=== PATIENT | male | born 1940 | race Caucasian/White ===

== ENCOUNTER 2019-12-07 14:13 | Inpatient (IN) | payer MEDICARE, OTHER ==
[2019-12-07 14:54] LABS: #Basophils 0.1 thou/uL (0.0-0.2); #Lymphocytes 0.6 thou/uL (1.20-3.40); #Monocytes 0.4 thou/uL (0.11-0.59); #Neutrophils 6.1 thou/uL (1.40-6.50); %Basophils 0.9 % (0.0-1.0); %Eosinophils 0.2 % (0.0-10.0); %Lymphocytes 8.5 % (21.0-51.0); %Monocytes 5.8 % (0.0-10.0); %Neutrophils 84.6 % (42.0-75.0); Mean Corpuscular HGB CONC 34.6 g/dL (32.0-36.0); Mean Corpuscular Hemoglobin 32.4 pg (27.0-31.0); Mean Corpuscular Volume 93.7 fL (78.0-98.0); Mean Platelet Volume 8.9 fL (7.4-10.4); Platelet Count 138 thou/uL (130-400); RBC Distribution Width 12.8 % (11.5-14.5); Red Blood Cell (RBC) Count 4.33 mill/uL (4.70-6.10); White Blood Cell (WBC) Count 7.3 thou/uL (4.8-10.8)
[2019-12-07] MEDS ORDERED: levETIRAcetam 1000 MG/100 ML PREMIX BAG ONE (15:04)
[2019-12-07 15:17] LABS: ALT (SGPT) 19 U/L (8-55); AST (SGOT) 17 U/L (5-34); Alkaline Phosphatase 102 U/L (40-110); Anion Gap 18 mmol/L (10-20); BUN (Urea Nitrogen) 20 mg/dL (8.4-25.7); Bilirubin, Total 0.5 mg/dL (0.2-1.2); Calc. Creatinine Clearance 0 mL/min (70-130); Calcium 10.1 mg/dL (7.8-10.44); Carbon Dioxide 18 mmol/L (23-31); Chloride 105 mmol/L (98-107); Estimated GFR-MDRD 58; Globulin 3.1 g/dL (2.4-3.5); Glucose 188 mg/dL (83-110); Potassium 4.7 mmol/L (3.5-5.1); Protein, Total 7.1 g/dL (5.8-8.1); Sodium 136 mmol/L (136-145)
--- NOTE | 2019-12-07 15:41 | RAD ---
FRONTAL RADIOGRAPH CHEST: Date: 12/07/2019 HISTORY: Seizure. FINDINGS: Mild increased linear interstitial density noted. Dense opacity in the medial left base noted, which may represent volume loss or infiltrate. No large volume pleural effusion. No pneumothorax. Shallow i nspiration and portable technique limits assessment of the lung bases. IMPRESSION: Nonspecific focal opacity in the left cardiophrenic angle. POS: [facility]
--- NOTE | 2019-12-07 15:47 | CT ---
HEAD CT WITHOUT CONTRAST: Date: 12/07/2019 COMPARISON: 08/05/2019. HISTORY: Seizure. TECHNIQUE: Axial CT imaging at 5 mm intervals from vertex through skull base without contrast. FINDINGS: The visualized paranasal sinuses and mastoid air cells are well aerated. No displaced calvarial fract ure is evident. There is atherosclerotic calcification of the cavernous carotid arteries and the basi lar artery. There is evidence of a bur hole in the right frontal region. As seen on the prior examination, there is extensive periventricular, deep, and subcortical white mat ter hypodensity, evidence of small vessel disease. Stable prominence of the lateral ventricles. No intracranial hemorrhage, midline shift, or mass effect. IMPRESSION: Stable head CT as detailed above. No intracranial hemorrhage, midline shift, or mass effect. POS: [facility]
[2019-12-07 16:27] LABS: Bacteria/HPF 4+ HPF (None Seen); Bilirubin Negative (Negative); Blood, Urine Negative (Negative); Clarity Turbid (Clear); Glucose, Urine (Dipstick) Normal (Negative); Leukocyte 500 Leu/uL (Negative); Nitrite Negative (Negative); Protein, Urine (Dipstick) 30 mg/dL (Neg-Trace); Squamous Epithelial None Seen HPF (0-3); Urobilinogen Normal mg/dL (Less than 2); WBC/HPF Greater than 50 HPF (0-3)
[2019-12-07] MEDS ORDERED: cefTRIAXone\\ROCEPHIN 2 GM VIAL ONE (16:49)
--- NOTE | 2019-12-07 18:07 | PDOC.FPRHP ---
- History of Present Illness Chief Complaint: Seizure History of Present Illness: 79 yo M with history of seizures 2/2 hydrocephalus, DMII, HTN, and HLD who presents after tonic clonic seizure. He was sitting in his wheelchair watching tv and his stomach was hurting so his took him to the bathroom. She made him eggs after. She went to go fold clothes and heard a noise and went to the living room. She said he was in his wheelchair shaking all over and blue in the face. May x1- He was "not awake for 5 weeks. He was diagnosed with Hydrocephalus and had a drain, but took it out. [facility] and rehab, then he broke his leg and had to come back to the hospital and back to rehab. During this episode: He was awake, no biting of his tongue or bowel or bladder incontinence. His primary at the [place]- Dr. Patricia was supposed to set up a neurology referral, but it has never been set up. ED Course: EMS gave him 2 mg of Ativan. In the ED, he was given azithro, rocephin, Keppra, and 1 L NS. - Allergies/Adverse Reactions Allergies Allergy/AdvReac Type Severity Reaction Status Date / Time tramadol Allergy Verified 12/08/19 02:36 - Home Medications Medication Instructions Recorded Confirmed Type Atorvastatin Calcium 20 mg PO DAILY 12/07/19 12/07/19 History Docusate Calcium 240 mg PO DAILY PRN 12/07/19 12/07/19 History Gabapentin 300 mg PO BID 12/07/19 12/07/19 History Gabapentin 600 mg PO QPM 12/07/19 12/07/19 History Lisinopril 20 mg PO DAILY 12/07/19 12/07/19 History Metoprolol Tartrate 37.5 mg PO BID 12/07/19 12/07/19 History Omeprazole 20 mg PO TID 12/07/19 12/07/19 History Potassium Chloride [K-Dur] 20 meq PO BID 12/07/19 12/07/19 History Rivaroxaban [Xarelto] 20 mg PO DAILY 12/07/19 12/07/19 History Tamsulosin HCl 0.4 mg PO DAILY 12/07/19 12/07/19 History Terbinafine HCl 250 mg PO DAILY 12/07/19 12/07/19 History diphenhydrAMINE [Benadryl] 25 mg PO DAILY PRN 12/07/19 12/07/19 History glipiZIDE [Glipizide] 5 mg PO TID 12/07/19 12/07/19 History - History PMHx: Seizure 2/2 Hydrocephalus, DMII, DVT in [place]- 07/14, HTN, HLD PSHx: SB resection (2002), IVC Filter (2002), left hip surgery (2002 & 07/15) FHx: Non-contributory Social: Tobacco- quit 1981, since teenager, 1PPD. Alcohol- 1 beer occasional. No recreational drugs. Baseline- A&Ox3, hard of hearing, needs hearing aids Code Status: Chemical & intubate - Review of Systems ROS unobtainable: due to mental status - Vital signs BP: 120/78 HR: 105 RR: 12 Tmax: 97.7 Pox: 98% on RA Wt: 77.11 kg - Physical Exam Constitutional: NAD HEENT: normocephalic and atraumatic, PERRLA, conjunctiva clear, normal nasal mucosa, oropharynx clear -HEENT: Dry mucous membranes Neck: supple, no LAD Chest: no-tender to palpation Heart: normal S1/S2 -Heart: Tachycardiac Lungs: CTAB, no respiratory distress Abdomen: soft, non-tender, bowel sounds present Musculoskeletal: normal structure, normal tone Neurological: no focal deficit Skin: no rash/lesions, good turgor Heme/Lymphatic: no unusual bruising or bleeding, no purpura, no petechia -Psychiatric: A&O: 0/4 FMR H&P: Results - Labs Result Diagrams: 12/08/19 04:30 12/07/19 14:46 Lab results: WBC 7.3 thou/uL (4.8-10.8) 12/07/19 14:47 Hgb 14.0 g/dL (14.0-18.0) 12/07/19 14:47 Hct 40.5 % (42.0-52.0) L 12/07/19 14:47 MCV 93.7 fL (78.0-98.0) 12/07/19 14:47 Plt Count 138 thou/uL (130-400) 12/07/19 14:47 Neutrophils % 84.6 % (42.0-75.0) H 12/07/19 14:47 Sodium 136 mmol/L (136-145) 12/07/19 14:46 Potassium 4.7 mmol/L (3.5-5.1) 12/07/19 14:46 Chloride 105 mmol/L (98-107) 12/07/19 14:46 Carbon Dioxide 18 mmol/L (23-31) L 12/07/19 14:46 BUN 20 mg/dL (8.4-25.7) 12/07/19 14:46 Creatinine 1.20 mg/dL (0.7-1.3) 12/07/19 14:46 Glucose 188 mg/dL (83-110) H 12/07/19 14:46 Calcium 10.1 mg/dL (7.8-10.44) 12/07/19 14:46 Total Bilirubin 0.5 mg/dL (0.2-1.2) 12/07/19 14:46 AST 17 U/L (5-34) 12/07/19 14:46 ALT 19 U/L (8-55) 12/07/19 14:46 Alkaline Phosphatase 102 U/L (40-110) 12/07/19 14:46 Serum Total Protein 7.1 g/dL (5.8-8.1) 12/07/19 14:46 Albumin 4.0 g/dL (3.4-4.8) 12/07/19 14:46 Urine Ketones 10 mg/dL (Negative) A 12/07/19 16:00 Urine Blood Negative (Negative) 12/07/19 16:00 Urine Nitrite Negative (Negative) 12/07/19 16:00 Ur Leukocyte Esterase 500 Per/uL (Negative) A 12/07/19 16:00 Urine RBC 4-6 HPF (0-3) A 12/07/19 16:00 Urine WBC Greater than 50 HPF (0-3) A 12/07/19 16:00 Ur Squamous Epith Cells None Seen HPF (0-3) 12/07/19 16:00 Urine Bacteria 4+ HPF (None Seen) A 12/07/19 16:00 FMR H&P: A/P - Problem List (1) Seizure Current Visit: Yes Status: Acute Code(s): R56.9 - UNSPECIFIED CONVULSIONS (2) Normal pressure hydrocephalus Current Visit: Yes Status: Acute Code(s): G91.2 - (IDIOPATHIC) NORMAL PRESSURE HYDROCEPHALUS (3) DMII (diabetes mellitus, type 2) Current Visit: Yes Status: Chronic (4) HTN (hypertension) Current Visit: Yes Status: Chronic Code(s): I10 - ESSENTIAL (PRIMARY) HYPERTENSION (5) HLD (hyperlipidemia) Current Visit: Yes Status: Chronic Code(s): E78.5 - HYPERLIPIDEMIA, UNSPECIFIED - Plan 79 yo M with history of seizures 2/2 hydrocephalus, DMII, HTN, and HLD who presents after tonic clonic seizure. 1. Seizure, likely 2/2 Normal Pressure Hydrocephalus Hx of Normal Pressure Hydrocephalus 06/14 with luna hole and shunt placement that was later removed * CT Brain: Negative * EMS: 2mg Ativan * ED: Keppra loading dose * Will continue Keppra and Ativan on prn * Consider neurosurgery consult in the am * Q4H Neurochecks * No neurologist outpt, saw Dr. Esqueda last visit 2. Acute Encephalopathy Likely 2/2 to Seizure * A&O x0 * Baseline: A&O x3, per * Will continue to monitor 3. UTI UA: Melida 4+, WBC 500, Nit neg, urine turbid * ED: Rocephin * Will continue Rocephin * Await culture and sensitivities 3. Left Lower Lobe Opacity per Cxray * ED: azithro * Will hold antibiotics for now and check procal 4. Tachycardia Likely 2/2 infection vs dehydration * ED: 1L NS * Ordered 1L LR * Continue IVF 100 cc/h * Placed on telemetry * Will continue to monitor 5. DMII Will hold glipizide * QACHS checks * Hypoglycemia protocol * Mild SSI 6. HTN Continue home medication regimen * Will continue to monitor and adjust ast needed 7. HLD Continue home medication Code Status: Chemical & Intubation Diet: NPO, pending speech eval Activity: strict bedrest, fall precautions Fluids: LR @ 100 GI PPx: Omeprazole DVT PPx: Xarelto Dispo: Stroke inpt for seizure, LOS > 48H. Will admit to stroke and treat for UTI. FMR H&P: Upper Level - Plan Date/Time: 12/07/191806 Karlos Morley MD, have evaluated this patient and agree with findings/plan as outlined by media intern resident. Pertinent changes/additions are listed here. Rhea Cox is a 79 year old M with a PMH of DM2, HTN, HLD, NPH, Epilepsy, Hx of DVT on anticoagulation who was brought to the ED for seizure. Patient unable to provide any history in ED due to post-ictal state and A&OX0. Hx gathered from ER nurse and patient's . states that he had tonic clonic seizure today while sitting in wheelchair watching tv. Episode witness and he had generalized shaking and was blue in the face. In may 2019, he had a seizure episode and was diagnosed with NPH and had drain in for a few months but it was removed. He has not had an seizure like activity since that time until now. He had not been complaining of anything to his recently. denies any bowel or bladder incontinence or tongue biting. In the ED, CT brain was negative and CXR showed left lower lobe opacity. He was given azithro and rocephin for possible UTI as well as 1 L NS and loaded with levitiracetam. EKG showed sinus tachycardia with bifasicular block. Labs showed UDS pos for benzos , trop 0.01, UA showed 4+ bact, 0-3 squa, leuks. WBC 7.3, Hg 14.0, Cr 1.2, Na 136, K 4.7. On exam, pt A&OX0, minimally responsive to commands, GCS 10. Neuro nonfocal, movement bilaterally but not cooperative. Heart tachycardic, no murmur. Lungs CTAB. ABd soft nt/nd. Ext no cyanosis or edema. Admitting to inpatient stroke for encephalopathy likely 2/2 seizure/postictal and uti. Trend cardiac enzymes, continue empiric antibiotics and monitor urine cx. Continue keppra. Neuro checks q4h. Consider neuro consult in am. Please see media intern note above for full H&P, which I have reviewed and agree with. Addendum - Attending - Attending Attestation Date/Time: 12/08/19 4609 I personally evaluated the patient and discussed the management with the team. I agree with the History, Examination, Assessment and Plan documented above with any addition or exceptions noted below. Pt with a PMH of seizures and had a trial of shunt for NPH which was removed after a lack of improvement. Low suspicion for sepsis/meningitis and per had not had significant mental status changes. On exam he arouses to voice but does not follow commands. His heart has occasional dropped beats, no murmur. Lungs clear. No evidence of soft tissue infection. Continue supportive care and empiric antibiotics. DC in 1-2 days.
[2019-12-07 18:14] LABS: Acetaminophen Less than 6.0 mcg/mL (10.0-30.0); Alcohol Less than 10 mg/dL (Less than 10); Salicylate Less than 8.0 mg/dL (15.0-30.0)
[2019-12-07 18:27] LABS: Amphetamine Not Detected (NotDetected); Barbiturates Screen Not Detected (NotDetected); Benzodiazepine Screen Detected (NotDetected); Cocaine Metabolite Screen Not Detected (NotDetected); Medtox Control Line Valid? VALID (VALID); Medtox Reader # READER 4; Methadone Not Detected (NotDetected); Methamphetamine Not Detected (NotDetected); Opiate Screen Not Detected (NotDetected); Oxycodone Screen Not Detected (NotDetected); Phencyclidine (PCP) Not Detected (NotDetected); THC/Cannabinoid Screen Not Detected (NotDetected); Tricyclic Screen Not Detected (NotDetected)
[2019-12-07] MEDS ORDERED: Azithromycin 500 MG VIAL ONE (19:00)
[2019-12-07] MEDS ORDERED: Acetaminophen 650 MG Suppository PR PRN (20:14)
[2019-12-07] MEDS ORDERED: Senokot S 8.6-50 MG TAB PO PRN (20:14)
[2019-12-07] MEDS ORDERED: Lorazepam 2 MG/ML VIAL SLOW IVP PRN (20:14)
[2019-12-07] MEDS ORDERED: Ondansetron ODT 4 MG TAB PO PRN (20:14)
[2019-12-07] MEDS ORDERED: Ondansetron PF 4 MG/2 ML Vial IVP PRN (20:20)
[2019-12-07] MEDS ORDERED: Ondansetron ODT 4 MG TAB SL PRN (20:20)
[2019-12-07] MEDS ORDERED: Acetaminophen 325 MG TAB PO PRN (20:20)
[2019-12-07 20:53] LABS: Phosphorus 2.8 mg/dL (2.3-4.7)
[2019-12-07] MEDS ORDERED: Lactated Ringer's 1,000 ML IV SCH (21:30)
[2019-12-07 21:56] LABS: Troponin I Less than 0.010 ng/mL (< 0.028)
[2019-12-07] MEDS ORDERED: Docusate Calcium (SURFAK) 240 MG CAP PO PRN (22:01)
[2019-12-07] MEDS ORDERED: Dextrose 5% in Water 1,000 ML IV PRN (22:05)
[2019-12-07] MEDS ORDERED: Dextrose 50% Abboject 50 ML SYRINGE SLOW IVP PRN (22:05)
[2019-12-07] MEDS ORDERED: HumaLOG 300 UNITS/3 ML VIAL SC PRN (22:05)
[2019-12-08] MEDS: Lactated Ringer's 1,000 ML IV SCH ×2 (00:24→14:09)
[2019-12-08 02:39] VITALS: BMI 23.2
[2019-12-08 05:00] LABS: #Eosinphils 0.1 thou/uL (0.0-0.7); #Lymphocytes 0.8 thou/uL (1.20-3.40); #Monocytes 1.1 thou/uL (0.11-0.59); #Neutrophils 8.3 thou/uL (1.40-6.50); %Basophils 0.4 % (0.0-1.0); %Eosinophils 0.6 % (0.0-10.0); %Lymphocytes 7.8 % (21.0-51.0); %Monocytes 10.4 % (0.0-10.0); %Neutrophils 80.8 % (42.0-75.0); Hemoglobin 13.9 g/dL (14.0-18.0); Mean Corpuscular HGB CONC 35.2 g/dL (32.0-36.0); Mean Corpuscular Hemoglobin 32.8 pg (27.0-31.0); Mean Corpuscular Volume 93.2 fL (78.0-98.0); Mean Platelet Volume 9.3 fL (7.4-10.4); Platelet Count 152 thou/uL (130-400); RBC Distribution Width 12.7 % (11.5-14.5); Red Blood Cell (RBC) Count 4.24 mill/uL (4.70-6.10); White Blood Cell (WBC) Count 10.2 thou/uL (4.8-10.8)
--- NOTE | 2019-12-08 07:36 | PDOC.FM ---
- Subjective Subjective: No acute events overnight. Per nursing staff mentation has waxed and waned, A/ Ox2 at best, he is A/O x0 at my assessment this morning. He is also very hard of hearing. Currently states he is in no pain, no fever/chills. No family at bedside or able to be reached by phone. No further seizure-like activity. - Objective MAR Reviewed: Yes Vital Signs & Weight: Vital Signs (12 hours) Temp Pulse Resp BP BP Pulse Ox 12/08/19 04:00 98.7 F 95 16 154/73 H 92 L 12/08/19 00:00 97.7 F 104 H 18 138/91 H 92 L 12/07/19 21:56 108 H 141/93 H 12/07/19 20:15 97.8 F 110 H 16 172/103 H 96 Weight Weight 71.395 kg I&O: 12/07/19 12/08/19 12/09/19 06:59 06:59 06:59 Intake Total 1700 Output Total 800 Balance 900 Result Diagrams: 12/08/19 04:30 12/07/19 14:46 Phys Exam - Physical Examination Constitutional: NAD (resting comfortably, A/O x0 this AM) HEENT: PERRLA dry MM Neck: supple Respiratory: no wheezing, no rales, no rhonchi, clear to auscultation bilateral Cardiovascular: RRR Gastrointestinal: soft, non-tender, no distention, positive bowel sounds Musculoskeletal: no edema 4+/5 BL UE, 4+/5 LLE, 4/5 RLE. Right facial droop and eyelid droop EOMI, normal sensation, unable to follow cerebellar tests Skin: no rash Dx/Plan (1) Seizure Code(s): R56.9 - UNSPECIFIED CONVULSIONS Status: Acute (2) DMII (diabetes mellitus, type 2) Status: Chronic (3) HLD (hyperlipidemia) Code(s): E78.5 - HYPERLIPIDEMIA, UNSPECIFIED Status: Chronic (4) HTN (hypertension) Code(s): I10 - ESSENTIAL (PRIMARY) HYPERTENSION Status: Chronic - Plan Plan: 79 yo M with history of seizures 2/2 hydrocephalus, DMII, HTN, and HLD who presented after tonic clonic seizure. #Seizure, suspected 2/2 Normal Pressure Hydrocephalus vs CVA - Hx of Normal Pressure Hydrocephalus 06/14 with luna hole and drain placement that was later removed - Known to Dr. Acevedo - CT Brain: no acute changes - Given 2mg Ativan by EMS and Keppra loading dose by ED - Cont keppra with Ativan prn - R facial droop this AM, with slightly more weak on R as compared to L. 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 Unable to contact to verify timeline of sxs or if these findings are chronic. MRI this morning to further evaluate. - will need outpatient neurology f/u - Will consult neurosurgery for eval and recs - Q4H Neurochecks #Acute Metabolic Encephalopathy - Seizure vs UTI vs NPH vs possible new CVA - Baseline A/O x3 per , A/O x0 this AM cont to monitor #UTI - UA: Melida 4+, WBC 500, Nit neg, urine turbid - Started on Rocephin 12/07, will cont and await UCx #Left Lower Lobe Opacity on CXR - given azithro in ED, VSS, procal negative. Holding azithro for now, monitor and consider restarting as necessary #Tachycardia - Likely 2/2 infection vs dehydration - s/p fluid resusitation in ED, cont IVF @ 100cc/hr - no acute events on tele, cont to monitor #DMII - Will hold glipizide as can contribute to hypoglycemia and AMS - ACHS accuchecks, hypoglycemic protocol, Mild SSI #HTN - Continue home medication regimen and adjust as needed #HLD - Continue home medication #H/o DVT - on Xarelto, will cont Code Status: Chemical & Intubation Diet: NPO, pending speech eval and mentation Activity: strict bedrest, fall/seizure precautions Fluids: LR @ 100 GI PPx: Omeprazole DVT PPx: Xarelto Dispo: Stroke inpt for seizure, LOS > 48H. Treating UTI. MRI pending. Neurosurgery recs. Cont Keppra. Addendum - Attending - Attending Attestation Date/Time: 12/08/19 3848 I personally evaluated the patient and discussed the management with Dr. Rivas. I agree with the History, Examination, Assessment and Plan documented above with any addition or exceptions noted below. Patient with no further seizure activity. Will consult NSGY regarding possible need for [employer] shunt 2/2 chronic NPH. MRI today.
[2019-12-08] MEDS ORDERED: levETIRAcetam 500 MG TAB PO SCH (09:00)
[2019-12-08] MEDS ORDERED: Prevnar 13-Val Conj/PF 0.5 ML SYRINGE IM ONE (09:00)
[2019-12-08] MEDS ORDERED: Lorazepam 2 MG/ML VIAL SLOW IVP PRN (10:57)
--- NOTE | 2019-12-08 13:17 | MRI ---
Exam: Brain MRI without contrast HISTORY: Altered mental status COMPARISON: None FINDINGS: Calvarial marrow signal intensity: Appropriate T1 signal Gradient echo sequence: No hemorrhage Brain parenchyma: No mass, mass effect or midline shift. Brain volume, age-appropriate. Cortical diaz-white matter differentiation: Preserved Restricted diffusion: Central arterial flow voids are maintained. Absent restricted diffusion White matter signal intensities: T2, FLAIR white matter hyperintensities due to chronic small vessel ischemic changes Sinuses: Adequate aeration of the paranasal sinuses and mastoid air cells. IMPRESSION: 1. Limited evaluation due to motion degradation. 2. No acute abnormality. 3. Stable chronic small vessel ischemic changes of the white matter. 4. Absent restricted diffusion. No acute infarct.
[2019-12-08] MEDS ORDERED: levETIRAcetam 500 mg/5 ml Oral Solution PO SCH (13:45)
[2019-12-08] MEDS ORDERED: Pantoprazole 40 MG GRANULES PACKET PO SCH (13:45)
[2019-12-08] MEDS: Potassium Chloride 20 MEQ TAB PO SCH ×2 (14:06→18:29)
[2019-12-08] MEDS: Tamsulosin HCl 0.4 MG CAP PO SCH (14:06)
[2019-12-08] MEDS: Metoprolol Tartrate 25 MG TAB PO SCH ×2 (14:06→20:38)
[2019-12-08] MEDS: Gabapentin 300 MG CAP PO SCH ×3 (14:06→20:40)
[2019-12-08] MEDS: Atorvastatin Calcium 20 MG TAB PO SCH (14:06)
[2019-12-08] MEDS: Lisinopril 20 MG TAB PO SCH (14:08)
[2019-12-08] MEDS: cefTRIAXone\\ROCEPHIN 1 GM in Sodium Chloride 0.9% 100 ML IVPB SCH (16:10)
[2019-12-08] MEDS: Pantoprazole 40 MG GRANULES PACKET PO SCH (18:29)
[2019-12-08] MEDS: Rivaroxaban 10 MG TAB PO SCH (18:29)
[2019-12-08] MEDS: Acetaminophen 325 MG TAB PO PRN (20:38)
[2019-12-08] MEDS: levETIRAcetam 500 mg/5 ml Oral Solution PO SCH (20:40)
[2019-12-09] MEDS: Lactated Ringer's 1,000 ML IV SCH ×3 (03:36→21:00)
--- NOTE | 2019-12-09 08:15 | PDOC.FM ---
- Subjective Subjective: Stable this morning. Mentation mildly improved. A/O x1 and slightly more talkative. Denies any pain, n/v, fever/chills. Quiet but will answer questions. Hard of hearing. Spoke with yesterday, states was at baseline a few days ago, A/O x3, but was complaining of urinary sxs and foul-smelling urine. He is usually wheel-chair bound but does walk some with walker at home. She witness seizure, gaze fixed and full body shaking. - Objective MAR Reviewed: Yes Vital Signs & Weight: Vital Signs (12 hours) Temp Pulse Resp BP Pulse Ox 12/09/19 04:00 97.7 F 76 18 105/62 96 12/09/19 00:00 97.6 F 72 18 100/59 L 92 L Weight Weight 71.395 kg I&O: 12/08/19 12/09/19 12/10/19 06:59 06:59 06:59 Intake Total 1700 Output Total 1120 Balance 580 Result Diagrams: 12/08/19 04:30 12/07/19 14:46 Phys Exam - Physical Examination Constitutional: NAD (resting comfortably) dry MM Neck: supple Respiratory: no wheezing, no rales, no rhonchi, clear to auscultation bilateral Cardiovascular: RRR Gastrointestinal: soft, non-tender, no distention, positive bowel sounds Musculoskeletal: no edema Neurological: moves all 4 limbs R facial droop, other CN intact. 5/5 strength BL UE, 4/5 RLE and 5/5 LLE Deviation from normal: A/O x1 to person, slow speech Dx/Plan (1) Seizure Code(s): R56.9 - UNSPECIFIED CONVULSIONS Status: Acute (2) DMII (diabetes mellitus, type 2) Status: Chronic (3) HLD (hyperlipidemia) Code(s): E78.5 - HYPERLIPIDEMIA, UNSPECIFIED Status: Chronic (4) HTN (hypertension) Code(s): I10 - ESSENTIAL (PRIMARY) HYPERTENSION Status: Chronic - Plan Plan: 79 yo M with history of seizures 2/2 hydrocephalus, DMII, HTN, and HLD who presented after tonic clonic seizure. #Seizure, suspected 2/2 Normal Pressure Hydrocephalus vs CVA - Hx of Normal Pressure Hydrocephalus 06/14 with luna hole and drain placement that was later removed - Known to Dr. Acevedo - CT Brain: no acute changes - MRI Brain - no acute changes, stable ventricles - Given 2mg Ativan by EMS and Keppra loading dose by ED - Cont keppra with Ativan prn - R facial droop cont, with slightly more weak on R as compared to L. 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 contacted and states these sxs are new, only time he had seizure was at hospitalization for NPH in past. Not on seizure medications at home and has been A/Ox3 in past few days with acute change in mentation - Neurosurgery consulted for eval and recs, apprec assistance - Q4H Neurochecks - Speech consulted for swallow eval - PT/OT to eval and tx #Acute Metabolic Encephalopathy - UTI vs NPH - MRI without acute infarcts - no further seizure-like activity - treating UTI - Baseline A/O x3 per , A/O x0 this AM cont to monitor #UTI - UA: Melida 4+, WBC 500, Nit neg, urine turbid - UCx: E. coli resistance to flouroquinolones - Cont Rocephin (started 12/07 - plan to transition to Cefdinir for discharge when appropriate #Left Lower Lobe Opacity on CXR - given azithro in ED, VSS, procal negative. Holding azithro for now, monitor and consider restarting as necessary #Tachycardia - Likely 2/2 infection vs dehydration - s/p fluid resusitation in ED, cont IVF @ 100cc/hr - no acute events on tele, cont to monitor #DMII - Will hold glipizide as can contribute to hypoglycemia and AMS - ACHS accuchecks, hypoglycemic protocol, Mild SSI #HTN - Continue home medication regimen and adjust as needed #HLD - Continue home medication #H/o DVT - on Xarelto, will cont Code Status: Chemical & Intubation Diet: NPO, pending speech eval and mentation Activity: strict bedrest, fall/seizure precautions Fluids: LR @ 100 GI PPx: Omeprazole DVT PPx: Xarelto Dispo: Stroke inpt for seizure, LOS > 48H. Treating UTI. MRI negative. Neurosurgery recs. Cont Keppra. Likely discharge to rehab when appropriate. Addendum - Attending - Attending Attestation Date/Time: 12/09/19 1041 I personally evaluated the patient and discussed the management with Dr. Rivas. I agree with the History, Examination, Assessment and Plan documented above with any addition or exceptions noted below. Patient overall stable. NSGY on board to evaluate. Patient has some suggestion of UTI which could be part to do with AMS and seizure. Continue Keppra.
[2019-12-09] MEDS: Pantoprazole 40 MG GRANULES PACKET PO SCH ×2 (10:30→13:16)
[2019-12-09] MEDS: Metoprolol Tartrate 25 MG TAB PO SCH ×2 (10:30→21:00)
[2019-12-09] MEDS: Atorvastatin Calcium 20 MG TAB PO SCH (10:32)
[2019-12-09] MEDS: Lisinopril 20 MG TAB PO SCH (10:32)
[2019-12-09] MEDS: Potassium Chloride 20 MEQ TAB PO SCH ×2 (10:32→18:14)
[2019-12-09] MEDS: Tamsulosin HCl 0.4 MG CAP PO SCH (10:33)
[2019-12-09] MEDS: levETIRAcetam 500 mg/5 ml Oral Solution PO SCH ×2 (10:33→21:19)
[2019-12-09] MEDS: Gabapentin 300 MG CAP PO SCH ×3 (10:33→21:18)
[2019-12-09] MEDS ORDERED: Lactated Ringer's 500 ML IV SCH (13:30)
[2019-12-09] MEDS ORDERED: Lactated Ringer's 1,000 ML IV SCH ×2 (15:45→20:30)
[2019-12-09] MEDS: HumaLOG 300 UNITS/3 ML VIAL SC PRN (18:13)
[2019-12-09] MEDS: Rivaroxaban 10 MG TAB PO SCH (18:14)
[2019-12-09] MEDS: cefTRIAXone\\ROCEPHIN 1 GM in Sodium Chloride 0.9% 100 ML IVPB SCH (18:14)
[2019-12-10] MEDS: Lactated Ringer's 1,000 ML IV SCH ×4 (00:30→21:37)
[2019-12-10] MEDS ORDERED: Pantoprazole 40 MG GRANULES PACKET PO SCH (08:00)
--- NOTE | 2019-12-10 08:20 | PDOC.FM ---
- Subjective Subjective: Doing well this morning. Episode of asx hypotension last night, responded to IVF bolus. Mentation improved overnight per nursing staff, more talkative and answering questions. This morning, doing well, no fever/chills, pains, n/v. Tolerating PO. - Objective MAR Reviewed: Yes Vital Signs & Weight: Vital Signs (12 hours) Temp Pulse Resp BP Pulse Ox 12/10/19 07:19 97.3 F L 55 L 13 107/60 93 L 12/10/19 04:23 97.6 F 59 L 16 96/55 L 99 12/10/19 00:03 98.4 F 59 L 16 94 L Weight Weight 71.395 kg I&O: 12/09/19 12/10/19 12/11/19 06:59 06:59 06:59 Intake Total 1700 2680 Output Total 1120 Balance 580 2680 Result Diagrams: 12/08/19 04:30 12/07/19 14:46 EKG Reviewed by me: Yes (Tele: NSR) Phys Exam - Physical Examination Constitutional: NAD (resting comfortably, more talkative this AM, A/O x2) HEENT: moist MMs Neck: supple Respiratory: no wheezing, no rales, no rhonchi, clear to auscultation bilateral Cardiovascular: RRR, no significant murmur, no rub Gastrointestinal: soft, non-tender, no distention, positive bowel sounds Musculoskeletal: no edema Neurological: moves all 4 limbs Dx/Plan (1) Seizure Code(s): R56.9 - UNSPECIFIED CONVULSIONS Status: Acute (2) DMII (diabetes mellitus, type 2) Status: Chronic (3) HLD (hyperlipidemia) Code(s): E78.5 - HYPERLIPIDEMIA, UNSPECIFIED Status: Chronic (4) HTN (hypertension) Code(s): I10 - ESSENTIAL (PRIMARY) HYPERTENSION Status: Chronic - Plan Plan: 79 yo M with history of seizures 2/2 hydrocephalus, DMII, HTN, and HLD who presented after tonic clonic seizure. #Seizure, suspected 2/2 Normal Pressure Hydrocephalus vs CVA - Hx of Normal Pressure Hydrocephalus 06/14 with luna hole and drain placement that was later removed - Known to Dr. Acevedo - CT Brain: no acute changes - MRI Brain - no acute changes, stable ventricles - Given 2mg Ativan by EMS and Keppra loading dose by ED - Cont keppra with Ativan prn - R facial droop cont, with slightly more weak on R as compared to L. 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 contacted and states these sxs are new, only time he had seizure was at hospitalization for NPH in past and no chronic facial droop. Not on seizure medications at home and has been A/Ox3 in past few days with acute change in mentation - Neurosurgery consulted for eval and recs, do not think this is caused by NPH, images were reviewed, no further recs, apprec assistance - Q4H Neurochecks - Speech consulted for swallow eval - advancing diet as tolerated - PT/OT to eval and tx #Acute Metabolic Encephalopathy, improved - suspected 2/2 UTI - MRI without acute infarcts - no further seizure-like activity - treating UTI - Baseline A/O x3 per , A/O x2 this AM cont to monitor #UTI - UA: Melida 4+, WBC 500, Nit neg, urine turbid - UCx: E. coli resistance to flouroquinolones - Cont Rocephin (started 12/07 - plan to transition to Cefdinir for discharge when appropriate for total 10d course #Left Lower Lobe Opacity on CXR - given azithro in ED, VSS, procal negative. Holding azithro for now, monitor and consider restarting as necessary - no s/s of PNA #Tachycardia, resolved - Likely 2/2 infection vs dehydration - s/p fluid resusitation in ED, cont IVF @ 100cc/hr - no acute events on tele, cont to monitor #DMII - Will hold glipizide as can contribute to hypoglycemia and AMS - ACHS accuchecks, hypoglycemic protocol, Mild SSI #HTN - Continue home medication regimen and adjust as needed #HLD - Continue home medication #H/o DVT and afib - on Xarelto, will cont Code Status: Chemical & Intubation Diet: HH, aspiration precautions Fluids: LR @ 100 GI PPx: Omeprazole DVT PPx: Xarelto Dispo: Stroke inpt for seizure, LOS > 48H. Treating UTI. MRI negative. Cont Keppra. Likely discharge to rehab. Addendum - Attending - Attending Attestation Date/Time: 12/10/19 1117 I personally evaluated the patient and discussed the management with Dr. Rivas. I agree with the History, Examination, Assessment and Plan documented above with any addition or exceptions noted below. Patient with improved mentation. Will need complete course of treatment for complicated UTI. Awaiting rehab placement decision.
[2019-12-10] MEDS ORDERED: Lisinopril 10 MG TAB PO SCH (09:00)
[2019-12-10] MEDS: levETIRAcetam 500 mg/5 ml Oral Solution PO SCH ×2 (09:09→21:42)
[2019-12-10] MEDS: Metoprolol Tartrate 25 MG TAB PO SCH ×2 (09:10→21:38)
[2019-12-10] MEDS: Gabapentin 300 MG CAP PO SCH ×2 (09:10→21:38)
[2019-12-10] MEDS: Potassium Chloride 20 MEQ TAB PO SCH ×2 (09:12→16:57)
[2019-12-10] MEDS: Atorvastatin Calcium 20 MG TAB PO SCH (09:13)
[2019-12-10] MEDS: Tamsulosin HCl 0.4 MG CAP PO SCH (09:13)
[2019-12-10] MEDS: HumaLOG 300 UNITS/3 ML VIAL SC PRN (11:00)
[2019-12-10] MEDS: cefTRIAXone\\ROCEPHIN 1 GM in Sodium Chloride 0.9% 100 ML IVPB SCH (16:54)
[2019-12-10] MEDS: Acetaminophen 325 MG TAB PO PRN (16:57)
[2019-12-10] MEDS: Rivaroxaban 10 MG TAB PO SCH (16:57)
[2019-12-11] MEDS: Acetaminophen 325 MG TAB PO PRN (04:32)
[2019-12-11] MEDS: Lactated Ringer's 1,000 ML IV SCH (05:57)
--- NOTE | 2019-12-11 06:24 | PDOC.FM ---
- Subjective Subjective: Doing well, mentation much improved overnight. A/O x3, talking with nurses, using call light, much improved per report. No concerns for this morning. No fever/chills, CP, SOB. Spoke with over the phone yesterday, eager for him to go to rehab and ultimately return home as soon as possible and safely. Updated on his clinical course. - Objective MAR Reviewed: Yes Vital Signs & Weight: Vital Signs (12 hours) Temp Pulse Resp BP Pulse Ox 12/11/19 04:00 97.6 F 59 L 16 133/56 L 95 12/11/19 00:00 97.8 F 59 L 16 121/66 94 L 12/10/19 20:00 98.2 F 60 16 122/63 95 Weight Weight 71.395 kg I&O: 12/09/19 12/10/19 12/11/19 06:59 06:59 06:59 Intake Total 1700 2680 1558 Output Total 1120 600 Balance 580 2680 958 Result Diagrams: 12/08/19 04:30 12/07/19 14:46 Phys Exam - Physical Examination Constitutional: NAD (resting comfortably) HEENT: moist MMs Neck: supple Respiratory: no wheezing, no rales, no rhonchi, clear to auscultation bilateral Cardiovascular: RRR Gastrointestinal: soft, non-tender, no distention, positive bowel sounds Musculoskeletal: no edema Psychiatric: A&O x 3 (mentation improved) Dx/Plan (1) Seizure Code(s): R56.9 - UNSPECIFIED CONVULSIONS Status: Acute (2) DMII (diabetes mellitus, type 2) Status: Chronic (3) HLD (hyperlipidemia) Code(s): E78.5 - HYPERLIPIDEMIA, UNSPECIFIED Status: Chronic (4) HTN (hypertension) Code(s): I10 - ESSENTIAL (PRIMARY) HYPERTENSION Status: Chronic - Plan Plan: 79 yo M with history of seizures 2/2 hydrocephalus, DMII, HTN, and HLD who presented after tonic clonic seizure. 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 Acevedo - CT Brain: no acute changes - MRI Brain - no acute changes, stable ventricles - Given 2mg Ativan by EMS and Keppra loading dose by ED - Cont keppra with Ativan prn - R facial droop cont, with slightly more weak on R as compared to L. 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 contacted and states these sxs are new, only time he had seizure was at hospitalization for NPH in past and no chronic facial droop. Not on seizure medications at home and has been A/Ox3 in past few days prior to admission with acute change in mentation - Neurosurgery consulted for eval and recs, do not think this is caused by NPH, images were reviewed, no further recs, apprec assistance - Q4H Neurochecks; Speech/PT/OT - will need outpt neurology f/u #Acute Metabolic Encephalopathy, improved - 2/2 UTI, treating - MRI without acute infarcts - no further seizure-like activity - Baseline A/O x3 per , A/O x3 this AM cont to monitor #E. Coli UTI - UA: Melida 4+, WBC 500, Nit neg, urine turbid - UCx: E. coli resistance to flouroquinolones - Cont Rocephin (started 12/07 - plan to transition to Cefdinir for discharge when appropriate for total 10d course) #Left Lower Lobe Opacity on CXR - given azithro in ED, VSS, procal negative. No s/s of PNA. #DMII - Hold glipizide as can contribute to hypoglycemia and AMS - ACHS accuchecks, hypoglycemic protocol, Mild SSI - consider metformin as outpatient #HTN - Hypotensive, Lisinopril held and BP still within goal. #HLD - Continue home medication #H/o DVT and afib - on Xarelto, will cont Code Status: Chemical & Intubation Diet: HH, aspiration precautions Fluids: SL GI PPx: Omeprazole DVT PPx: Xarelto Dispo: Stroke inpt for seizure, LOS > 48H. Treating UTI. MRI negative. Cont Keppra. Medically cleared for discharge to rehab. Addendum - Attending - Attending Attestation Date/Time: 12/11/19 1007 I personally evaluated the patient and discussed the management with Dr. Rivas. I agree with the History, Examination, Assessment and Plan documented above with any addition or exceptions noted below. Patient somewhat improved. A&Ox3 this morning, but mentation still slowed. Awaiting rehab decision and otherwise stable for dc.
[2019-12-11] MEDS: HumaLOG 300 UNITS/3 ML VIAL SC PRN ×3 (07:27→16:56)
[2019-12-11] MEDS: levETIRAcetam 500 mg/5 ml Oral Solution PO SCH ×2 (08:39→21:25)
[2019-12-11] MEDS: Potassium Chloride 20 MEQ TAB PO SCH ×2 (08:40→18:19)
[2019-12-11] MEDS: Metoprolol Tartrate 25 MG TAB PO SCH ×2 (08:43→21:21)
[2019-12-11] MEDS: Atorvastatin Calcium 20 MG TAB PO SCH (08:44)
[2019-12-11] MEDS: Cefdinir 300 MG CAP PO SCH ×2 (08:44→21:20)
[2019-12-11] MEDS: Gabapentin 300 MG CAP PO SCH ×2 (08:44→21:20)
[2019-12-11] MEDS: Tamsulosin HCl 0.4 MG CAP PO SCH (08:44)
[2019-12-11] MEDS: Artificial Tears 18 DROP/0.9 ML EA EYE PRN (18:19)
[2019-12-11] MEDS: Rivaroxaban 10 MG TAB PO SCH (18:19)
[2019-12-11] MEDS ORDERED: Polymyxin B Sulf/Trimethoprim 10 ML OPHTH DROPS OP SCH (22:30)
[2019-12-12] MEDS: HumaLOG 300 UNITS/3 ML VIAL SC PRN ×2 (06:44→11:17)
[2019-12-12] MEDS: Artificial Tears 18 DROP/0.9 ML EA EYE PRN (06:44)
--- NOTE | 2019-12-12 07:39 | PDOC.FM ---
- Subjective Subjective: Doing well this morning, no acute events overnight. Patient is very hard of hearing and reads lips. A/O x2-3 this AM. Slow to converse but understands. No fever/chills. Chronic leg pain, no acute changes. Tolerating PO well, no n/v. Voiding and stooling. No seizure-like activity or new focal deficits. Eager for discharge. - Objective MAR Reviewed: Yes Vital Signs & Weight: Vital Signs (12 hours) Temp Pulse Resp BP Pulse Ox 12/12/19 07:25 97.5 F L 67 15 123/73 93 L 12/12/19 04:00 97.4 F L 63 16 124/74 96 12/11/19 23:54 97.9 F 63 16 139/71 96 12/11/19 20:16 95 12/11/19 19:48 97.7 F 68 16 146/67 H 95 Weight Weight 71.395 kg I&O: 12/11/19 12/12/19 12/13/19 06:59 06:59 06:59 Intake Total 1558 2340 Output Total 600 Balance 958 2340 Result Diagrams: 12/08/19 04:30 12/07/19 14:46 Phys Exam - Physical Examination Constitutional: NAD (resting comfortably, very heard of hearing, reads lips, good spirits) HEENT: moist MMs Neck: supple Respiratory: no wheezing, no rales, no rhonchi, clear to auscultation bilateral Cardiovascular: RRR Gastrointestinal: soft, non-tender, no distention, positive bowel sounds Musculoskeletal: no edema Neurological: normal sensation, moves all 4 limbs Deviation from normal: A/O x2, not to place completely (just knows city), overal improved Dx/Plan (1) Seizure Code(s): R56.9 - UNSPECIFIED CONVULSIONS Status: Acute (2) DMII (diabetes mellitus, type 2) Status: Chronic (3) HLD (hyperlipidemia) Code(s): E78.5 - HYPERLIPIDEMIA, UNSPECIFIED Status: Chronic (4) HTN (hypertension) Code(s): I10 - ESSENTIAL (PRIMARY) HYPERTENSION Status: Chronic - Plan Plan: 79 yo M with history of seizures 2/2 hydrocephalus, DMII, HTN, and HLD who presented after tonic clonic seizure. 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 Acevedo - CT Brain - no acute changes - MRI Brain - no acute changes, stable ventricles - Given 2mg Ativan by EMS and Keppra loading dose by ED - Cont keppra with Ativan prn - R facial droop cont, with slightly more weak on R as compared to L. 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 contacted and states these sxs are new, only time he had seizure was at hospitalization for NPH in past and no chronic facial droop. Not on seizure medications at home and has been A/Ox3 in past few days prior to admission with acute change in mentation - Neurosurgery consulted for eval and recs, do not think this is caused by NPH, images were reviewed, no further recs, apprec assistance - Q4H Neurochecks; Speech/PT/OT - will need outpt neurology f/u #Acute Metabolic Encephalopathy, improved - 2/2 UTI, treating - MRI without acute infarcts - no further seizure-like activity - Baseline A/O x3 per , A/O x2 this AM cont to monitor #E. Coli UTI - UA: Melida 4+, WBC 500, Nit neg, urine turbid - UCx: E. coli resistance to flouroquinolones - Cont Rocephin (started 12/07) - transitioned to Cefdinir for total 10d course #Deconditioning - diffuse muscle weakness, fall risk - PT/OT worked with pt and recommend rehab - pending placement and ins auth #Left Lower Lobe Opacity on CXR - given azithro in ED, VSS, procal negative. No s/s of PNA. #DMII - Hold glipizide as can contribute to hypoglycemia and AMS - ACHS accuchecks, hypoglycemic protocol, Mild SSI - consider metformin as outpatient #HTN - Hypotensive, Lisinopril held and BP within goal. #HLD - Continue home medication #H/o DVT and afib - on Xarelto, will cont Code Status: Chemical & Intubation Diet: HH, aspiration precautions Fluids: SL GI PPx: Omeprazole DVT PPx: Xarelto Dispo: Stroke inpt for seizure, LOS > 48H. Treating UTI. MRI negative. Cont Keppra. Medically cleared for discharge to rehab. Addendum - Attending - Attending Attestation Date/Time: 12/12/19 1038 I personally evaluated the patient and discussed the management with Dr. Rivas. I agree with the History, Examination, Assessment and Plan documented above with any addition or exceptions noted below. Patient stable. Overall medically stable for discharge. Awaiting insurance decision on rehab as not at functional level where returning home in the short term is safe.
[2019-12-12] MEDS: Polymyxin B Sulf/Trimethoprim 10 ML OPHTH DROPS OP SCH ×2 (08:59→13:30)
[2019-12-12] MEDS: levETIRAcetam 500 mg/5 ml Oral Solution PO SCH (09:00)
[2019-12-12] MEDS: Metoprolol Tartrate 25 MG TAB PO SCH (09:02)
[2019-12-12] MEDS: Atorvastatin Calcium 20 MG TAB PO SCH (09:03)
[2019-12-12] MEDS: Potassium Chloride 20 MEQ TAB PO SCH (09:04)
[2019-12-12] MEDS: Cefdinir 300 MG CAP PO SCH (09:05)
[2019-12-12] MEDS: Tamsulosin HCl 0.4 MG CAP PO SCH (09:05)
[2019-12-12] MEDS: Gabapentin 300 MG CAP PO SCH (09:05)
[2019-12-12 11:22] VITALS: TEMP 98
[2019-12-12 11:43] VITALS: BP 119/63
--- NOTE | 2019-12-12 12:33 | DIS ---
DATE OF ADMISSION: 12/07/2019 DATE OF DISCHARGE: 12/12/2019 ADMITTING ATTENDING: Mart Guillory MD. DISCHARGE ATTENDING: Lane Dumont MD. RESIDENT: Enrique Rivas MD. PROCEDURES PERFORMED: 1. Brain CT on 12/07/2019, demonstrating stable head CT. No intracranial hemorrhage, midline shift, or mass effect. 2. Chest x-ray on 12/07/2019, demonstrating nonspecific focal opacity in the left cardiophrenic angle. 3. Brain MRI on 12/08/2019, demonstrating no acute abnormality, stable chronic small-vessel ischemic changes of the white matter, absent restricted diffusion, no acute infarct. CONSULTS: Neurosurgery, Dr. Acevedo PRIMARY DIAGNOSES: 1. Seizure. 2. Acute metabolic encephalopathy, improved. 3. E. coli urinary tract infection. SECONDARY DIAGNOSES: 1. Type 2 diabetic. 2. Hypertension. 3. Hyperlipidemia. 4. History of deep vein thrombosis and atrial fibrillation. 5. Left eye bacterial conjunctivitis DISCHARGE MEDICATIONS: 1. Cefdinir 300 mg p.o. b.i.d. x7 days. 2. Keppra 500 mg p.o. b.i.d. 3. Metoprolol tartrate 37.5 mg p.o. b.i.d. 4. Gabapentin 300 mg p.o. b.i.d. 5. Atorvastatin 20 mg p.o. daily. 6. Flomax 0.4 mg p.o. daily. 7. Xarelto 20 mg p.o. daily. 8. Prilosec 20 mg p.o. daily. 9. Colace 240 mg p.o. daily p.r.n. 10. Benadryl 25 mg p.o. at bedtime p.r.n. 11. Terbinafine 250 mg p.o. daily. 12. Potassium chloride 20 mEq p.o. b.i.d. 13. Gabapentin 600 mg p.o. q.p.m. 14. Antibiotic eye ointment to apply to left eye BID x7d DISCONTINUED MEDICATIONS: 1. Glipizide 5 mg p.o. t.i.d. 2. Lisinopril 20 mg p.o. daily. HISTORY OF PRESENT ILLNESS AND HOSPITAL COURSE: The patient is a 79-year-old male with history of seizures secondary to normal pressure hydrocephalus, type 2 diabetes, hypertension, hyperlipidemia, who presented after a tonic-clonic seizure. Per , he was at home in his usual state of health until approximately 2-3 days before presentation, the patient began to complain of urinary symptoms. On the day of admission, he had a tonic-clonic seizure, witnessed by , EMS was called, and the patient was transported to [facility] for further evaluation and management. He was given 2 mg Ativan by EMS and Keppra loading dose by the emergency department and admitted for further evaluation and management. The patient's CT brain was negative per above. MRI was then obtained and was also negative per above. The patient does have a history of normal pressure hydrocephalus, for which an external drain was placed in [place] [address] Acevedo. Neurosurgery was consulted, who reviewed the imaging and evaluated the patient and stated that this was unlikely to be caused by his NPH and had no further recommendations. The patient also seemed to present with a right facial droop and slightly more weak on the right as compared to the left, but he had a right hip replacement in the past and a small CVA in the past as well. After discussion with the , it appeared these symptoms were new, thus an MRI was obtained, but negative for any acute strokes. The patient was continued on Keppra and this was continued until the time of discharge. The patient is to follow up with outpatient Neurology with the [facility]. The patient continued to work with PT and OT and it was recommended that he be discharged to inpatient rehab for further strengthening prior to discharge to home. The patient also presented with acute metabolic encephalopathy, but mentation of an A and O x1-2 on the first few days of hospitalization. On speaking with his , normally he is A and O x3 and able to carry on a conversation, however, with very difficult hearing. MRI did not show any acute infarcts. The patient was found to have an E. coli UTI, resistant to fluoroquinolones, susceptible to cephalosporins. The patient was continued on Rocephin and had 3 days of this and transitioned to oral cefdinir for a total of a 10-day course. The patient's mentation did improve with treatment of his UTI. Ultimately, it was determined that the patient's encephalopathy is likely secondary to his UTI because it improved with treatment. Regarding the patient's chronic medical conditions, the patient did have a few episodes of hypoglycemia. On medication record review, it was determined that he was on glipizide, likely contributing to his hypoglycemia, thus it was discontinued. It was also noted that the patient was not on metformin at home and this was not started during the hospitalization, however, may be recommended to start this as an outpatient. The patient was also noted to be hypotensive at times. His home lisinopril was held and he became normotensive with fluid boluses. The patient' s other home medications were continued per above. Of note, the patient also had a left lower lobe opacity on chest x-ray, however, his vital signs were stable, procalcitonin was negative, and had no signs or symptoms of pneumonia, and thus this was unlikely to represent pneumonia. However, the patient was on antibiotics for the UTI that would also cover community-acquired pneumonia. Patient was to be discharged to rehab, however was denied by insurance. and patient did not want to pursue SNF. Thus patient was ultimately discharged home with home health to continue PT/OT/Speech therapy. Transport assist device was arranged through . At the time of discharge, the patient was A and O x3 and mobility was improved, however, he was moderately deconditioned. Discharge plan was discussed with the patient and who voiced agreement and understanding of discharge plan, and all questions were answered appropriately. DISPOSITION: Stable. DISCHARGE INSTRUCTIONS: 1. Location: Home with home health 2. Activity: As tolerated and recommended by Physical Therapy. 3. Diet: Diabetic. 4. Followup: The patient is to follow up with primary care physician within 1 week of discharge from inpatient rehab. The patient is also to follow up with Neurology as outpatient with the [facility]. Job ID: [id number] [email or web address]
--- NOTE | 2019-12-12 15:17 | PDOC.BPN ---
- Brief Progress Note Patient was recommended to be discharged to inpt rehab for further PT/OT/ usp/speech therapy. Patient was denied by insurance. After speaking with , they do not want to go to a usp facility at this time and would prefer to be discharged home with home health. Patient lives with elderly , poor ambulation and transfer. Based on PT notes and assessment, pt would benefit from mary lift at home to assist with transfer and help to prevent falls and rehospitalization. Patient is moderately deconditioned from hospitalization and medical conditions. He also may have underlying dementia that will need assessment as outpatient contributing to functional status. Patient would benefit from home health with the above therapies. Orders placed and case management consulted for assistance.
== END 2019-12-12 16:24 | disposition home health service (06) | DRG 100 ==
LOC: ERS 14:13 → OBSVTOIN 18:42 → 2SE 18:42
PROVIDERS: ADMIT Family Medicine; ATTEND Family Medicine
DX: G40.409 Other generalized epilepsy and epileptic syndromes, not intractable, without status epilepticus (principal); G93.41 Metabolic encephalopathy; R40.2212 Coma scale, best verbal response, none, at arrival to emergency department; R40.2342 Coma scale, best motor response, flexion withdrawal, at arrival to emergency department; N39.0 Urinary tract infection, site not specified; Z16.23 Resistance to quinolones and fluoroquinolones; B96.20 Unspecified Escherichia coli [E. coli] as the cause of diseases classified elsewhere; I10 Essential (primary) hypertension; E78.5 Hyperlipidemia, unspecified; I48.91 Unspecified atrial fibrillation; H10.9 Unspecified conjunctivitis; E78.2 Mixed hyperlipidemia; E86.0 Dehydration; R91.8 Other nonspecific abnormal finding of lung field; Z96.641 Presence of right artificial hip joint; R40.2132 Coma scale, eyes open, to sound, at arrival to emergency department; F03.90 Unspecified dementia, unspecified severity, without behavioral disturbance, psychotic disturbance, mood disturbance, and anxiety; E11.649 Type 2 diabetes mellitus with hypoglycemia without coma; Z86.718 Personal history of other venous thrombosis and embolism; Z88.5 Allergy status to narcotic agent; Z79.899 Other long term (current) drug therapy; Z79.01 Long term (current) use of anticoagulants; Z79.84 Long term (current) use of oral hypoglycemic drugs; Z90.49 Acquired absence of other specified parts of digestive tract; Z87.891 Personal history of nicotine dependence; Z86.73 Personal history of transient ischemic attack (TIA), and cerebral infarction without residual deficits
CPT/HCPCS: 36415; 36416; 51701; 70450; 70551; 71045; 80053; 80306; 80307; 81003; 81015; 83735; 84100; 84145; 84443; 84484; 85025; 85730; 87077; 87086; 87186; 93005; 94760; 96361; 96365; 96367; 96375; J0456; J0696; J1953; J2060; J3490